=== PATIENT | female | born 1975 | race Caucasian/White ===

== ENCOUNTER 2019-07-18 17:48 | Emergency (ER) | payer MEDICAID ==
[~2019-07-18] VITALS: Ht 172.7 cm; Wt 134.0 kg
[~2019-07-18 17:48] MED LIST: ALBU17AE26 IH
[2019-07-18 17:52] VITALS: BP 187/98
[2019-07-18] MEDS ORDERED: PRED20TA PO (18:51)
[2019-07-18] MEDS ORDERED: predniSONE 20 mg tablet PO STA (18:54)
[2019-07-18] MEDS ORDERED: ipratropium/albuterol 3ml nebule NEB ONE (19:00)
[2019-07-18] MEDS ORDERED: ALB0.5UD NEB (19:31)
== END 2019-07-18 19:39 | disposition home or self-care (01) ==
LOC: ER 17:49
DX: J20.9 Acute bronchitis, unspecified (principal); J06.9 Acute upper respiratory infection, unspecified; Z98.890 Other specified postprocedural states; Z79.899 Other long term (current) drug therapy
CPT/HCPCS: 71045; 94010; 94640; 99283; J7512; 94760

== ENCOUNTER 2020-11-12 09:50 | Emergency (ER) | payer MEDICAID, OTHER ==
[~2020-11-12] VITALS: Ht 172.7 cm; Wt 131.5 kg
[2020-11-12 10:00] VITALS: BP 133/94
[2020-11-12] MEDS ORDERED: HYDROcodone/acetaminophen 5mg/325mg tablet PO ONE (10:15)
[2020-11-12] MEDS ORDERED: ondansetron 4mg rapidly disintigrating tab PO ONE (10:15)
[2020-11-12] MEDS ORDERED: silver sulfadiazine cream 400gm jar TP SCH (10:15)
[2020-11-12] MEDS ORDERED: ONDA4TAB6 PO (10:20)
[2020-11-12] MEDS ORDERED: HYDR-3965 PO (10:20)
[2020-11-12] MEDS ORDERED: SILV50CR31 TOP (10:20)
== END 2020-11-12 10:49 | disposition home or self-care (01) ==
LOC: ER 09:51
DX: T22.00XA Burn of unspecified degree of shoulder and upper limb, except wrist and hand, unspecified site, initial encounter (principal); Z98.890 Other specified postprocedural states; Z79.899 Other long term (current) drug therapy; Y92.89 Other specified places as the place of occurrence of the external cause
CPT/HCPCS: 99283